=== PATIENT | female | born 1980 | race American Indian/Alaskan Native ===

== ENCOUNTER 2017-08-31 20:49 | Outpatient (CLI) | payer MEDICAID ==
[2017-08-31 21:21] VITALS: BP 131/82
[2017-08-31] MEDS ORDERED: LACTATED RINGERS 1,000 ML IV ONE (21:39)
[2017-08-31 22:22] LABS: Bilirubin,Urine NEG (Negative); Blood,Urine NEG (Negative); Ketones,Urine 80 mg/dL (Negative); Leukocyte Esterase,Urine NEG (Negative); Mucus,Urine 1+ /HPF; Nitrite,Urine NEG (Negative); Urobilinogen,Urine < 2.0 mg/dL (<2.0)
== END 2017-08-31 23:20 | disposition home or self-care (01) ==
LOC: TRG 20:49 → LD 23:07 → UNDOADMIN 23:07 → TRG 23:15
PROVIDERS: ATTEND Obstetrics & Gynecology
DX: O47.03 False labor before 37 completed weeks of gestation, third trimester (principal); Z3A.33 33 weeks gestation of pregnancy
CPT/HCPCS: 59025; 81001; 96360; J7120

== ENCOUNTER 2017-09-10 14:37 | Outpatient (CLI) | payer MEDICAID ==
[2017-09-10] MEDS ORDERED: LACTATED RINGERS 1,000 ML IV ONE (15:06)
[2017-09-10] MEDS ORDERED: ZOFRAN IV ONE (15:06)
[2017-09-10 15:17] VITALS: BP 119/85
[2017-09-10 15:21] LABS: Bacteria,Urine 1+ /HPF (Negative); Bilirubin,Urine NEG (Negative); Blood,Urine NEG (Negative); Ketones,Urine NEG (Negative); Leukocyte Esterase,Urine SM (Negative); Mucus,Urine 2+ /HPF; Nitrite,Urine NEG (Negative)
== END 2017-09-10 17:01 | disposition home or self-care (01) ==
LOC: TRG 14:37
PROVIDERS: ATTEND Obstetrics & Gynecology
DX: O47.03 False labor before 37 completed weeks of gestation, third trimester (principal); Z3A.35 35 weeks gestation of pregnancy
CPT/HCPCS: 59025; 81001

== ENCOUNTER 2017-09-13 20:32 | Inpatient (IN) | payer MEDICAID ==
[2017-09-13 21:51] LABS: Hematocrit 25.7 % (30.3-42.9); Hemoglobin 8.2 gm/dl (10.1-14.3); Mean Corpuscular HGB Conc 32 % (30-34); Mean Corpuscular Volume 80 fl (79-97); Platelet Count 241 K/mm3 (140-440); Red Blood Count 3.23 M/mm3 (3.65-5.03); Red Cell Distribution Width 19.2 % (13.2-15.2)
[2017-09-13 21:52] LABS: Mean Corpuscular Hemoglobin 26 pg (28-32)
[2017-09-13 21:54] LABS: Bilirubin,Urine NEG (Negative); Blood,Urine SM (Negative); Color,Urine Yellow (Yellow); Nitrite,Urine NEG (Negative); Protein,Urine <15 mg/dL mg/dL (Negative); Urobilinogen,Urine < 2.0 mg/dL (<2.0)
[2017-09-13] MEDS ORDERED: LACTATED RINGERS 1,000 ML IV ONE (22:00)
[2017-09-13 22:10] LABS: Alanine Aminotransferase 13 units/L (7-56)
[2017-09-13] MEDS: LACTATED RINGERS 1,000 ML IV SCH (22:40)
[2017-09-13] MEDS ORDERED: ZOFRAN IV PRN (23:41)
[2017-09-13] MEDS ORDERED: TYLENOL PO PRN (23:41)
[2017-09-13] MEDS ORDERED: AMBIEN PO PRN (23:41)
[2017-09-13] MEDS: STADOL IV PRN (23:41)
--- NOTE | 2017-09-13 23:50 | History and Physical Report ---
History of Present Illness Date of examination: 09/13/17 Date of admission: 09/13/17 23:29 Chief complaint: Contractions History of present illness: Pt is a 36yo BF EDC 10/18/17; EGA 35 0/7 weeks with Twin gestation (Vertex/ Vertex) presents to L&D complaining of RUC's q 2-5 mins without cervical change. She is therefore being admitted for observation. She received care at [facility] since 12 weeks and followed by [facility] for Twin gestation and Gestational Diabetes. records are not available and GBS is unknown. Past History Past Medical History: diabetes (GDM) Past Surgical History: no surgical history Social history: no significant social history, single - Obstetrical History Expected Date of Delivery: 10/18/17 Actual Gestation: 35 Week(s) 1 Day(s) : 5 Medications and Allergies Allergies Allergy/AdvReac Type Severity Reaction Status Date / Time No Known Allergies Allergy Verified 09/10/17 15:01 Home Medications Medication Instructions Recorded Confirmed Last Taken Type Vit-Fe Fumar-FA [ 1 tab PO QDAY 09/10/17 09/10/17 Unknown History Vitamin] Active Meds: Active Medications Acetaminophen (Tylenol) 650 mg PO Q4H PRN PRN Reason: Pain MILD(1-3)/Fever >100.5/HANDY Butorphanol Tartrate (Stadol) 2 mg IV Q2H PRN PRN Reason: Labor Pain Last Admin: 09/13/17 23:41 Dose: 2 mg Docusate Sodium (Colace) 100 mg PO Q12H PRN PRN Reason: Constipation Lactated Ringer's (Lactated Ringers) 1,000 mls @ 125 mls/hr IV DIRECT VERN Last Admin: 09/13/17 22:40 Dose: 125 mls/hr Multivitamins/Iron/Calcium ( Vitamin) 1 each PO QDAY VERN Ondansetron HCl (Zofran) 4 mg IV Q6H PRN PRN Reason: Nausea And Vomiting Zolpidem Tartrate (Ambien) 10 mg PO ONCE PRN PRN Reason: Sleep Review of Systems All systems: negative - Vital Signs Vital signs: Vital Signs Pulse BP Pulse Ox 81 144/91 97 09/13/17 20:58 09/13/17 20:58 09/13/17 20:58 Temp Pulse Resp BP Pulse Ox 98.5 F 85 20 145/86 95 09/13/17 21:14 09/13/17 21:44 09/13/17 21:14 09/13/17 21:44 09/13/17 21:20 - Physical Exam Breasts: Positive: deferred Cardiovascular: Regular rate Lungs: Positive: Clear to auscultation Abdomen: Positive: normal appearance Genitourinary (Female): Positive: normal external genitalia Vagina: Positive: normal moisture Uterus: Positive: enlarged - Obstetrical FHR: category 1 Uterine Contraction Monitor Mode: External Cervical Dilatation: 0.5 (per nurse) Cervical Effacement Percentage: 0 (per nurse) station: -3 Uterine Contraction Pattern: Regular Uterine Tone Measurement Phase: Contraction Uterine Contraction Intensity: Moderate Results Result Diagrams: 09/13/17 21:12 09/13/17 21:12 Abnormal lab results 09/13/17 09/13/17 09/13/17 Range/Units 21:12 21:12 21:12 RBC 3.23 L (3.65-5.03) M/mm3 Hgb 8.2 L (10.1-14.3) gm/dl Hct 25.7 L (30.3-42.9) % MCH 26 L (28-32) pg RDW 19.2 H (13.2-15.2) % Creatinine 0.6 L (0.7-1.2) mg/dL POC Glucose (70-105) Lactate Dehydrogenase 276 H (91-180) units/L U Epithel Cells (Auto) 27.0 H (0-13.0) /HPF 09/13/17 Range/Units 21:26 RBC (3.65-5.03) M/mm3 Hgb (10.1-14.3) gm/dl Hct (30.3-42.9) % MCH (28-32) pg RDW (13.2-15.2) % Creatinine (0.7-1.2) mg/dL POC Glucose 60 L (70-105) Lactate Dehydrogenase (91-180) units/L U Epithel Cells (Auto) (0-13.0) /HPF All other labs normal. Ultrasound: report reviewed Assessment and Plan - Patient Problems (1) 35 weeks gestation of Onset Date: 09/13/17 Current Visit: Yes Status: Acute Plan to address problem: A: IUP @ 35 0/7 weeks Twin gestation contractions - without cervical change. Most likely prodromal labor P: Will admit for Observation/ Expectant vaginal deliveries NICU notified (2) Twin gestation in third trimester Onset Date: 09/13/17 Current Visit: Yes Status: Acute Qualifiers: Multiple gestation type: unspecified Qualified Code(s): O30.003 - Twin , unspecified number of placenta and unspecified number of amniotic sacs, third trimester (3) contractions Onset Date: 09/13/17 Current Visit: Yes Status: Acute
--- NOTE | 2017-09-14 00:26 | Ultrasound Report ---
FINAL REPORT PROCEDURE: US OB LIMITED TECHNIQUE: Real-time limited sonographic examination was performed for evaluation of size, position, heartbeat, fluid volume for each fetus with image documentation (1 or more fetuses). CPT 80391 HISTORY: twin gestation COMPARISON: No prior studies are available for comparison. FINDINGS: heart rate is 167 beats per minute. Fetus is in a cephalic presentation. . IMPRESSION: heart rate is 167 beats per minute. Fetus is in a cephalic presentation. .
[2017-09-14] MEDS: STADOL IV PRN (02:19)
[2017-09-14] MEDS: LACTATED RINGERS 1,000 ML IV SCH (02:34)
--- NOTE | 2017-09-14 03:02 | Ultrasound Report ---
FINAL REPORT PROCEDURE: US OB BPP WO NON-STRESS TECHNIQUE: Real-time limited sonographic examination was performed for evaluation of size, position, heartbeat, fluid volume for each fetus with image documentation (1 or more fetuses). CPT 63954 HISTORY: NRNST COMPARISON: No prior studies are available for comparison. FINDINGS: biophysical profile: breathing movements: 2. movements: 2. posterior and tone: 2. Qualitative amniotic fluid volume: 2. Total score: 8/8. Heart rate is 129 beats per minute. IMPRESSION: Biophysical profile is 8/8.
--- NOTE | 2017-09-14 03:03 | Ultrasound Report ---
FINAL REPORT PROCEDURE: US OB BPP WO NON-STRESS TECHNIQUE: Real-time limited sonographic examination was performed for evaluation of size, position, heartbeat, fluid volume for each fetus with image documentation (1 or more fetuses). CPT 07023 HISTORY: NRNST COMPARISON: No prior studies are available for comparison. FINDINGS: biophysical profile: breathing movements: 2. movements: 2. posterior and tone: 2. Qualitative amniotic fluid volume: 2. Total score: 8/8. Heart rate is 129 beats per minute. IMPRESSION: Biophysical profile is 8/8.
[2017-09-14] MEDS ORDERED: ePHEDrine SULFATE ONE (03:45)
[2017-09-14] MEDS ORDERED: fentaNYL-BUPIV 2 MCG/ML-0.125% 200 MCG/100 ML BAG EPIDURAL ONE (04:02)
[2017-09-14] MEDS ORDERED: NARCAN 2 MG/2 ML IV PRN (04:25)
[2017-09-14] MEDS ORDERED: ePHEDrine SULFATE IV PRN (04:25)
--- NOTE | 2017-09-14 04:25 | Anesthesia Consultation ---
Anesthesia Consult and Med Hx Date of service: 09/14/17 - Airway Anesthetic Teeth Evaluation: Good ROM Head & Neck: Adequate Mental/Hyoid Distance: Adequate Mallampati Class: Class II Intubation Access Assessment: Good - Pulmonary Exam CTA: Yes - Cardiac Exam Cardiac Exam: No Murmur - Pre-Operative Health Status ASA Pre-Surgery Classification: ASA3 Proposed Anesthetic Plan: Epidural - Pulmonary Hx Asthma: No COPD: No Hx Pneumonia: No - Cardiovascular System Hx Hypertension: Yes - Central Nervous System Hx Seizures: No Hx Psychiatric Problems: No - Endocrine Hx Renal Disease: No Hx End Stage Renal Disease: No Hx Hypothyroidism: No Hx Hyperthyroidism: No - Hematic Hx Anemia: No Hx Sickle Cell Disease: No - Other Systems Hx Alcohol Use: No Hx Obesity: Yes
[2017-09-14] MEDS ORDERED: PITOCin/NS 20 UNIT/1000ML DRIP 20,000 MILLIUNITS/1,000 ML BAG IV ONE (04:31)
[2017-09-14] MEDS ORDERED: fentaNYL-BUPIV 2 MCG/ML-0.125% 200 MCG/100 ML BAG EPIDURAL SCH (05:00)
--- NOTE | 2017-09-14 05:02 | Procedure Note ---
OB Delivery Note - Delivery Date of Delivery: 09/14/17 Surgeon: AILIN FERNANDEZ Estimated blood loss: 200cc - Vaginal Delivery presentation: vertex Delivery position: OA Intrapartum events: labor-<37 weeks Delivery induction: none Delivery augmentation: rupture of membranes Delivery monitor: external FHT, external uterine Route of delivery: vacuum extraction Indicators for instrumentation: maternal exhaustion Delivery placenta: spontaneous Delivery cord: nuchal cord (Twin B), 3 umbilical vessels Episiotomy: none Delivery laceration: none Anesthesia: epidural Delivery comments: Infant A delivered with the aid of a vacuum - 1 pull, no pop-off, and handed to awaiting Peds/RT. U/S performed confirmed cephalic position of Twin B. Amniotomy performed and Infant B delivered with the aid of a vacuum - 2 pulls, no pop-offs, and handed to awaiting Peds/RT - Infant A at 1 minute: 8 at 5 minutes: 9 Infant Gender: Male (2209gms) B at 1 minute: 7 at 5 minutes: 8 Infant Gender: Male (2159gms)
[2017-09-14] MEDS ORDERED: ZOFRAN IV PRN (05:04)
[2017-09-14] MEDS ORDERED: LANSINOH TP PRN (05:04)
[2017-09-14] MEDS ORDERED: BENADRYL PO PRN (05:04)
[2017-09-14] MEDS ORDERED: NORCO 5/325 PO PRN (05:04)
[2017-09-14] MEDS ORDERED: TYLENOL PO PRN (05:04)
[2017-09-14] MEDS ORDERED: DULCOLAX PR PRN (05:04)
[2017-09-14] MEDS ORDERED: PHENERGAN PO PRN (05:04)
[2017-09-14] MEDS ORDERED: MILK OF MAGNESIA PO PRN (05:04)
[2017-09-14] MEDS ORDERED: TUCKS PAD TP PRN (05:04)
[2017-09-14] MEDS ORDERED: PHENERGAN PR PRN (05:04)
[2017-09-14] MEDS ORDERED: SODIUM CHLORIDE FLUSH SYRINGE 10 ML IV PRN (06:00)
[2017-09-14] MEDS ORDERED: PITOCin/NS 20 UNIT/1000ML DRIP 20 UNITS/1,000 ML BAG IV SCH (06:00)
[2017-09-14] MEDS: MOTRIN PO SCH ×3 (07:07→18:24)
[2017-09-14] MEDS: FEOSOL PO SCH (10:00)
[2017-09-14] MEDS: COLACE PO PRN (10:00)
[2017-09-14] MEDS: PRENATAL VITAMIN PO SCH (10:00)
[2017-09-14] MEDS: NORCO 5/325 PO PRN ×2 (10:00→16:40)
[2017-09-14 16:34] LABS: Hemoglobin 7.1 gm/dl (10.1-14.3)
[2017-09-15] MEDS: MOTRIN PO SCH ×4 (00:15→17:48)
[2017-09-15] MEDS: FEOSOL PO SCH ×3 (00:39→21:31)
[2017-09-15] MEDS ORDERED: M-M-R II VACCINE SUB-Q ONE (05:04)
[2017-09-15] MEDS ORDERED: BOOSTRIX IM ONE (06:00)
[2017-09-15] MEDS: PRENATAL VITAMIN PO SCH (09:06)
[2017-09-15] MEDS: NORCO 5/325 PO PRN ×2 (09:06→13:45)
--- NOTE | 2017-09-15 14:54 | Progress Note ---
Assessment and Plan PPD#1 s/p -Doing well P: -Continue routine care -Anticipate discharge in 24-48 hours - Patient Problems (1) (normal spontaneous vaginal delivery) Current Visit: Yes Status: Acute Subjective - Subjective Date of service: 09/15/17 Principal diagnosis: PPD# 1 Interval history: Patient seen and examined, stable doing well no issues overnight. Patient reports: appetite normal, voiding normally, pain well controlled, ambulating normally, no dizzy ambulation, no nauseated : doing well, in NICU Objective - Vital Signs Latest vital signs: Vital Signs Temp Pulse Resp BP Pulse Ox 09/15/17 07:39 98.4 F 89 18 140/91 93 09/15/17 05:40 18 09/15/17 00:24 98.5 F 86 18 155/98 95 09/15/17 00:15 18 09/14/17 16:16 90 97 09/14/17 16:15 98.4 F 90 18 143/84 97 Intake and Output 09/14/17 09/15/17 09/15/17 23:59 07:59 15:59 Intake Total 480 480 480 Output Total 3 Balance 477 480 480 Intake: Oral 480 480 360 Intake, Free Water 120 Output: Urine 3 Void 3 Other: Total, Intake Amount 480 480 360 Total, Output Amount 3 # Voids Void 3 2 1 - Exam Abdomen: Present: normal appearance, soft. Absent: distention, tenderness, guarding, rigidity Uterus: Present: firm, fundal height below umbilicus. Absent: tenderness Extremities: Present: normal - Labs Labs: Abnormal lab results 09/14/17 Range/Units 16:24 Hgb 7.1 L (10.1-14.3) gm/dl Hct 23.0 L (30.3-42.9) %
--- NOTE | 2017-09-15 14:56 | Discharge Summary ---
Providers - Providers Date of Admission: 09/13/17 23:29 Date of discharge: 09/16/17 Attending physician: AILIN FERNANDEZ Primary care physician: AILIN FERNANDEZ Hospitalization Reason for admission: active labor, IUP - (twins) Delivery: , vacuum extraction Episiotomy: none Laceration: none complications: none Discharge diagnosis: delivery baby: twins Hospital course: Uncomplicated hospital course Condition at discharge: Good Disposition: DC-01 TO HOME OR SELFCARE - Discharge Diagnoses (1) (normal spontaneous vaginal delivery) Status: Acute Plan - Discharge Medications Prescriptions: HYDROcodone/APAP 5-325 [Mcpherson 5/325] 1 each PO Q6HR PRN #10 tablet PRN Reason: Pain Ibuprofen [Motrin 600 MG tab] 600 mg PO Q8H PRN #30 tablet PRN Reason: Pain Multivitamin with Iron [Multivitamins with Iron] 1 each PO DAILY #30 tablet - Provider Discharge Summary Activity: no sex for 6 weeks, no heavy lifting 4 weeks, no strenuous exercise Diet: routine Additional instructions: [] Smoking cessation referral if applicable(refer to patient education folder for contact #) [] Refer to [facility] Booklet Call your doctor immediately for: * Fever > 100.5 * Heavy vaginal bleeding ( >1 pad per hour) * Severe persistent headache * Shortness of breath * Reddened, hot, painful area to leg or breast * Drainage or odor from incision. * Keep incision clean and dry at all times and follow doctor's instructions regarding bathing/showering - Follow up plan Follow up: AILIN FERNANDEZ MD [Primary Care Provider] - 6 Weeks
[2017-09-16] MEDS: NORCO 5/325 PO PRN ×2 (00:17→12:15)
[2017-09-16] MEDS: MOTRIN PO SCH ×2 (00:18→07:30)
[2017-09-16] MEDS: PRENATAL VITAMIN PO SCH (07:30)
[2017-09-16] MEDS: FEOSOL PO SCH (07:30)
[2017-09-16] MEDS: COLACE PO PRN (07:30)
[2017-09-16 18:22] VITALS: BP 127/77
== END 2017-09-16 16:45 | disposition home or self-care (01) | DRG 775 ==
LOC: TRG 20:32 → OBSVTOIN 23:29 → TRG 23:29 → LD 23:29 → OB 09-14 06:35
PROVIDERS: ADMIT Obstetrics & Gynecology; ATTEND Obstetrics & Gynecology
PROC: 10D07Z6 Extraction of Products of Conception, Vacuum, Via Natural or Artificial Opening (ICD-10-PCS; principal; 2017-09-14)
PROC: 10907ZC Drainage of Amniotic Fluid, Therapeutic from Products of Conception, Via Natural or Artificial Opening (ICD-10-PCS; 2017-09-14)
PROC: 3E0R3BZ Introduction of Anesthetic Agent into Spinal Canal, Percutaneous Approach (ICD-10-PCS; 2017-09-14)
PROC: 00HU33Z Insertion of Infusion Device into Spinal Canal, Percutaneous Approach (ICD-10-PCS; 2017-09-14)
PROC: 3E0234Z Introduction of Serum, Toxoid and Vaccine into Muscle, Percutaneous Approach (ICD-10-PCS; 2017-09-15)
DX: O24.429 Gestational diabetes mellitus in childbirth, unspecified control (principal); O99.214 Obesity complicating childbirth; E66.9 Obesity, unspecified; O30.003 Twin pregnancy, unspecified number of placenta and unspecified number of amniotic sacs, third trimester; O69.81X2 Labor and delivery complicated by cord around neck, without compression, fetus 2; O60.14X0 Preterm labor third trimester with preterm delivery third trimester, not applicable or unspecified; Z3A.35 35 weeks gestation of pregnancy; Z68.41 Body mass index [BMI] 40.0-44.9, adult; Z37.2 Twins, both liveborn; Z23 Encounter for immunization
CPT/HCPCS: 36415; 76815; 76819; 81001; 82565; 82962; 83615; 84450; 84460; 84550; 85014; 85018; 85027; 86592; 86850; 86900; 86901; 88307; 90707; J0595; J2405; J2590; J7120